=== PATIENT | female | born 1975 | race Caucasian/White ===

== ENCOUNTER → 2016-07-28 | Outpatient (CLI) | payer BC ==
[~2016-07-28] MED LIST: MULTIVITAMIN FO1 CAP PO
== END ==
LOC: MC.RAD 16:15
DX: Z12.31 Encounter for screening mammogram for malignant neoplasm of breast (principal); R92.1 Mammographic calcification found on diagnostic imaging of breast

== ENCOUNTER 2017-04-13 10:15 | Inpatient (IN) | payer BC ==
[2017-04-13] VITALS (524 sets, daily range): BP systolic 127–141; BP diastolic 84–108; PULSE 94–140; TEMP 98.1–98.5; O2SAT 45–100
[~2017-04-13] VITALS: Ht 167.6 cm; Wt 60.8 kg
[2017-04-14] VITALS (862 sets, daily range): BP systolic 108–135; BP diastolic 87–102; PULSE 112–135; TEMP 97.7–99; O2SAT 62–100
[2017-04-14 05:44] LABS: MEAN CELL VOLUME 107 fl (80.0-100.0); MEAN CORPUSCULAR HEMOGLOBIN 38 pg (27.0-31.0); MEAN CORPUSCULAR HGB CONC 35 g/dl (33.0-37.0); MEAN PLATELET VOLUME 10.7 fl (7.4-10.4); PLATELET COUNT 90 K/mm3 (130-400); RED BLOOD COUNT 3.73 M/mm3 (4.10-5.30); REDCELL DISTRIBUTION WIDTH-CV 15.3 % (11.5-14.5)
[2017-04-14 05:55] LABS: ALBUMIN 2.9 gm/dL (3.5-5.0); BILIRUBIN,TOTAL 2.9 mg/dL (0.0-1.0); CALCIUM 7.3 mg/dL (8.4-10.2); CREATININE, serum 0.62 mg/dL (0.52-1.25); POTASSIUM 3.7 mmol/L (3.4-5.0); TOTAL PROTEIN 5.4 gm/dL (6.4-8.2)
[2017-04-14 06:18] LABS: BAND 40 % (0-10); EOSINOPHIL 1 % (0-4); LYMPHOCYTE 8 % (20.0-51.0); NEUTROPHILS 48 % (42.0-75.2)
[2017-04-14 06:20] LABS: TOXIC GRANULATION PRESENT
[2017-04-14 06:22] LABS: PLATELET ESTIMATE DECREASED (NORMAL)
[2017-04-15] VITALS (747 sets, daily range): BP systolic 112–125; BP diastolic 76–99; PULSE 102–125; TEMP 97.6–99.3; O2SAT 76–100
[2017-04-16 04:00] VITALS: BP 121/83; PULSE 124; TEMP 98.3
[2017-04-16 06:26] LABS: COLLECTION METHOD RANDOM VOIDED
[2017-04-16 06:43] LABS: PH 7 (5-8); SQUAMOUS EPITHELIAL 0-2 /hpf; URINE APPEARANCE Clear; URINE BACTERIA None Seen /hpf; URINE BILIRUBIN Negative (NEGATIVE); URINE BLOOD Negative (NEGATIVE); URINE COLOR Yellow; URINE GLUCOSE Negative (NEGATIVE); URINE KETONE 1+ (NEGATIVE); URINE LEUKOCYTE ESTERASE Negative (NEGATIVE); URINE NITRATE Negative (NEGATIVE); URINE PROTEIN(semi-quant) Negative (NEGATIVE); URINE RBC 0-2 /hpf; URINE UROBILINOGEN >=4.0 mg/dL (NEGATIVE); URINE WBC 0-2 /hpf
[2017-04-16 07:58] VITALS: BP 121/79; PULSE 121; TEMP 98.5
[2017-04-16 10:30] VITALS: BP 121/90; PULSE 105; TEMP 98.3
[2017-04-16 17:35] VITALS: BP 117/77; PULSE 114; TEMP 98.3
[2017-04-16 20:13] VITALS: BP 149/100; PULSE 127; TEMP 97.7
[2017-04-16 23:02] VITALS: BP 144/90; PULSE 104; TEMP 98.3
[2017-04-17] VITALS (9 sets, daily range): BP systolic 124–160; BP diastolic 86–107; PULSE 100–120; TEMP 97.2–98.7
[2017-04-17 07:27] LABS: MEAN CELL VOLUME 103 fl (80.0-100.0); MEAN CORPUSCULAR HGB CONC 36 g/dl (33.0-37.0); MEAN PLATELET VOLUME 10.8 fl (7.4-10.4); PLATELET COUNT 134 K/mm3 (130-400); RED BLOOD COUNT 2.98 M/mm3 (4.10-5.30); REDCELL DISTRIBUTION WIDTH-CV 14.4 % (11.5-14.5)
[2017-04-17 07:29] LABS: HEMATOCRIT 30.7 % (37.0-47.0); MEAN CORPUSCULAR HEMOGLOBIN 37 pg (27.0-31.0)
[2017-04-17 07:46] LABS: LYMPHOCYTE 20 % (20.0-51.0); NEUTROPHILS 64 % (42.0-75.2); PLATELET ESTIMATE NORMAL (NORMAL)
[2017-04-18] VITALS (12 sets, daily range): BP systolic 119–149; BP diastolic 82–99; PULSE 67–116; TEMP 97.8–98.4
[2017-04-19] VITALS (7 sets, daily range): BP systolic 121–139; BP diastolic 88–107; PULSE 97–116; TEMP 97.3–98.3
[2017-04-19] MEDS ORDERED: LOPRESSOR 225 MG/TAB PO (14:06)
[2017-04-19] MEDS ORDERED: CARAFATE S1 GM/10 ML PO (14:07)
[2017-04-19] MEDS ORDERED: THIAMINE 1100 MG/TAB PO (14:09)
[2017-04-19] MEDS ORDERED: PROTONIX40 MG/Pack PO (14:09)
[2017-04-19] MEDS ORDERED: FOLIC ACID 11 MG/TA1 PO (14:09)
[2017-04-19] MEDS ORDERED: ZOO CHEWS1 CTB PO (14:11)
== END 2017-04-19 17:09 | disposition other institution (70) | DRG 439 ==
LOC: MEDICAL 10:15 → ICU 10:15 → MEDICAL 04-15 17:48
PROVIDERS: Family Medicine; Internal Medicine; Internal Medicine Gastroenterology
PROC: 0DB38ZX Excision of Lower Esophagus, Via Natural or Artificial Opening Endoscopic, Diagnostic (ICD-10-PCS; principal; 2017-04-16 13:00)
DX: K85.20 Alcohol induced acute pancreatitis without necrosis or infection (principal); F10.231 Alcohol dependence with withdrawal delirium; K70.10 Alcoholic hepatitis without ascites; I10 Essential (primary) hypertension; K76.0 Fatty (change of) liver, not elsewhere classified; K21.0 Gastro-esophageal reflux disease with esophagitis; E87.6 Hypokalemia; K29.20 Alcoholic gastritis without bleeding
CPT/HCPCS: 99223-AI; 99232-AI; 99239; C9113; J1650; J2060; J2270; J2405; J2704; J3475; J3480; J7030; J7060; J7070; J7120

== ENCOUNTER → 2017-06-01 | Outpatient (REF) ==
[~2017-06-01] MED LIST changes: +CARAFATE S1 GM/10 ML PO; +FOLIC ACID 11 MG/TA1 PO; +LOPRESSOR 225 MG/TAB PO; +PROTONIX40 MG/Pack PO; +THIAMINE 1100 MG/TAB PO; +ZOO CHEWS1 CTB PO
== END ==
LOC: ZLAB.WCH 18:00
DX: Z01.89 Encounter for other specified special examinations (principal)

== ENCOUNTER → 2018-01-04 | Outpatient (CLI) | payer BC | LOC: MC.RAD 10-15 13:20 | DX: Z12.31 Encounter for screening mammogram for malignant neoplasm of breast (principal) ==